=== PATIENT | male | born 1975 | race Two or more races ===

== ENCOUNTER 2017-06-09 22:04 | Inpatient (IN) | payer OTHER ==
[~2017-06-09] VITALS: Ht 180.3 cm; Wt 90.7 kg
[2017-06-09] MEDS ORDERED: ROCURONIUM BROMIDE 50 MG/5 ML IV ONE (22:06)
[2017-06-09] MEDS ORDERED: ETOMIDATE 2 MG/ML VIAL IV ONE ×2 (22:06→23:00)
[2017-06-09] MEDS ORDERED: ONDANSETRON HCL/PF 4 MG/2 ML VIAL ONE (22:18)
--- NOTE | 2017-06-09 22:20 | NUR ---
ZOFRAN 4MG IVP GIVEN BY DARIN PICKENS VIA 18G LT HAND
--- NOTE | 2017-06-09 22:25 | NUR ---
PT INTUBATED VIA ETT 24 AT [facility] PER DR KESSLER REQUEST. PT SHOWED SIGNS OF RESP DISTRESS. PT PLACED ON [facility] VENT PER DR KESSLER. LOAN APPROVER CUFF PRESSURE NOTED. ALARMS ARE SET AND AUDIBLE. NAMRATAU BAG BEDSIDE. WILL CONTINUE TO MONITOR. Addendum: 06/09/17 at 2314 by NAYELI ERWIN RT Amended: Links added.
[2017-06-09] MEDS ORDERED: IV NS 0.9% 1,000 ML BAG IV ONE (22:30)
[2017-06-09] MEDS ORDERED: ONDANSETRON HCL/PF 4 MG/2 ML VIAL IV ONE (22:30)
--- NOTE | 2017-06-09 22:35 | NUR ---
PT IS ACTIVELY SEIZING. DR. KESSLER IS AT THE BEDSIDE. PT PLACED ON NRB MASK AT 15L. RT CALLED.
[2017-06-09] MEDS ORDERED: PROPOFOL 100 ML IV ONE ×2 (22:38→23:00)
--- NOTE | 2017-06-09 22:38 | NUR ---
DR. KESSLER WENT TO THE WAITING ROOM TO SPEAK TO PT'S FAMILY MEMBERS. NO FAMILY IN WAITING ROOM.
--- NOTE | 2017-06-09 22:40 | NUR ---
DR. KESSLER WENT TO THE LOBBY TO SPEAK TO FAMILY MEMBERS. NO FAMILY IN WAITING ROOM.
--- NOTE | 2017-06-09 22:41 | NUR ---
PT PREPED FOR INTUBATION. RT X3 AT THE BEDSIDE.
--- NOTE | 2017-06-09 22:42 | NUR ---
PT INTUBATED BY DR. KESSLER. BAGGING IN PROGRESS. +COLOR CHANGE AND BREATH SOUNDS BILATERALLY. 8ETT AND 24 @ THE LIP. PT PLACED ON VENT WITH THE FOLLOWING SETTINGS AC18, TV 500, FIO2 % 40, PEEP 5.
--- NOTE | 2017-06-09 22:43 | NUR ---
RADIOLOGY CALLED FOR XRAY.
--- NOTE | 2017-06-09 22:49 | NUR ---
CXR IN PROGRESS AT THE BEDSIDE.
--- NOTE | 2017-06-09 22:50 | NUR ---
KRISTA BISHOP WENT TO THE LOBBY TO SEE IF FAMILY MEMBERS WERE THERE. NO FAMILY IN THE LOBBY.
[2017-06-09] MEDS ORDERED: LEVETIRACETAM (500MG) 500 MG/5 ML VIAL IV ONE (22:56)
[2017-06-09] MEDS ORDERED: ROCURONIUM BROMIDE 100 MG/10 ML VIAL IV ONE (23:00)
[2017-06-09] MEDS ORDERED: LEVETIRACETAM (500MG) 1,000 MG in IV NS 0.9% 100 ML IV ONE (23:00)
[2017-06-09 23:08] LABS: BASOPHILS # (AUTO) 0.1 /CMM (0.0-0.2); BASOPHILS % (AUTO) 0.5 % (0.0-2.0); EOSINOPHILS # (AUTO) 0.2 /CMM (0.0-0.7); EOSINOPHILS % (AUTO) 1.4 % (0.0-6.0); HEMATOCRIT 47 % (39-51); HEMOGLOBIN 15.1 g/dL (13.5-17.5); LYMPHOCYTES # (AUTO) 6.2 /CMM (0.8-4.8); LYMPHOCYTES % (AUTO) 52.7 % (20.0-44.0); MEAN CORPUSCULAR HEMOGLOBIN 29 PG (26.0-33.0); MEAN CORPUSCULAR HGB CONC 33 g/dl (31.0-36.0); MEAN CORPUSCULAR VOLUME 89 fL (80-96); MONOCYTES # (AUTO) 0.8 /CMM (0.1-1.30); MONOCYTES % (AUTO) 7.1 % (2.0-12.0); NEUTROPHILS # (AUTO) 4.5 /CMM (1.8-8.9); NEUTROPHILS % (AUTO) 38.3 % (43.0-81.0); PLATELET COUNT (AUTO) 200 /CMM (150-450); RDW COEFFICIENT OF VARIATION 13.6 (11.5-15.0); RED BLOOD CELL COUNT(AUTO) 5.24 MIL/uL (4.5-6.0); WHITE BLOOD COUNT (AUTO) 11.7 K/uL (4.3-11.0)
[2017-06-09 23:09] VITALS: BP 144/72
--- NOTE | 2017-06-09 23:11 | NUR ---
OG TUBE INSERTED, PER DR. KESSLER'S ORDER. PLACEMENT/2ND VERIFICATION CONFIRMED BY AUSCULTATION AND ASPIRATION.
[2017-06-09 23:17] LABS: CALCIUM, SERUM 9.4 mg/dL (8.5-10.1); CARBON DIOXIDE 19 mmol/L (21-32); CHLORIDE 102 mmol/L (98-107); CREATININE 1.1 mg/dL (0.6-1.3); GLUCOSE 186 mg/dL (74-106); POTASSIUM 3.3 mmol/L (3.5-5.1); SODIUM SERUM 140 mmol/L (136-145); UREA NITROGEN, BLOOD 12 mg/dL (7-18)
[2017-06-09 23:21] LABS: ALANINE AMINOTRANSFERASE 157 U/L (12-78); ALBUMIN 4.4 g/dL (3.4-5.0); ALCOHOL, BLOOD < 3 mg/dL (0-0); ALKALINE PHOSPHATASE 93 U/L (46-116); ASPARTATE AMINOTRANSFERASE 71 U/L (15-37); BILIRUBIN,DIRECT 0.1 mg/dL (0.0-0.2); BILIRUBIN,TOTAL 0.5 mg/dL (0.2-1.0); TOTAL PROTEIN, SERUM 8.3 g/dL (6.4-8.2)
[2017-06-09 23:22] LABS: INR 1.01 (0.87-1.13); PROTHROMBIN TIME 10.5 SECS (9.5-12.7)
--- NOTE | 2017-06-09 23:28 | NUR ---
PT APPEARS TO BE RESTING COMFORTABLY WITH NO S/S OF SEIZURE. WILL CONTINUE TO MONITOR THE PT.
--- NOTE | 2017-06-09 23:30 | NUR ---
WENT TO SEE IF FAMILY WERE WAITING. NO FAMILY IN THE WAITING ROOM. DR. KESSLER NOTIFIED.
[2017-06-09 23:37] LABS: ABG BASE EXCESS -5.6 mmol/L; ABG OXYGEN SATURATION 93.6 % (92.0-98.5); ABG PCO2 44.7 mmHg (35.0-45.0); ABG PH 7.288 (7.350-7.450); ABG PO2 78.8 mmHg (75.0-100.0); COHb 0.3 % (0.5-1.5); MetHb 0.6 % (0.0-1.5); O2Hb 92.8 % (94.0-97.0); SITE, ABG A-Line; VENT MODE, BG AC 18 500 40% +5
[2017-06-10] VITALS (39 sets, daily range): BP systolic 92–173; BP diastolic 24–99
[2017-06-10] MEDS ORDERED: POTASSIUM CL. PREMIX PERIPHER. 50 ML IV SCH
--- NOTE | 2017-06-10 00:05 | NUR ---
PT IS ON THE MONITOR AND CONTINUOUS PULSE OX. PT IS ON VENT AND PROPOFOL INFUSING AT 20MCG/MIN, 10.8ML/HR. WILL CONTINUE TO MONITOR THE PT.
--- NOTE | 2017-06-10 00:20 | NUR ---
DR BRITO PAGED PER DR KESSLER.
[2017-06-10] MEDS ORDERED: POTASSIUM CHLORIDE 20 MEQ POWDER PACKET ONE (00:34)
[2017-06-10] MEDS ORDERED: LORAZEPAM INJ 2 MG/ML VIAL ONE (00:36)
--- NOTE | 2017-06-10 00:39 | NUR ---
VO PER MD KESSLER ATIVAN 2 MG ADMINISTERED 18G RAC IVP.
[2017-06-10 00:40] LABS: ABG BASE EXCESS -4.5 mmol/L; ABG OXYGEN SATURATION 92.8 % (92.0-98.5); ABG PCO2 39.5 mmHg (35.0-45.0); ABG PH 7.341 (7.350-7.450); ABG PO2 72.9 mmHg (75.0-100.0); COHb 0.1 % (0.5-1.5); MetHb 0.6 % (0.0-1.5); O2Hb 92.2 % (94.0-97.0); SITE, ABG A-Line; VENT MODE, BG AC 18 500 40% +5
--- NOTE | 2017-06-10 00:54 | NUR ---
PROPOFOL INCREASED TO 50MCG/MIN, 27ML/HR
--- NOTE | 2017-06-10 00:56 | NUR ---
CALLING REPORT TO ICU NURSE.
--- NOTE | 2017-06-10 00:57 | NUR ---
NOT ABLE TO CALL REPORT PER DR. KESSLER
[2017-06-10] MEDS ORDERED: phenytoin SODIUM IV 250 MG/5 ML VIAL IV ONE (00:59)
[2017-06-10] MEDS ORDERED: POTASSIUM CHLORIDE 20 MEQ POWDER PACKET PO ONE (01:00)
[2017-06-10] MEDS ORDERED: LORAZEPAM INJ 2 MG/ML VIAL IV ONE (01:00)
[2017-06-10] MEDS ORDERED: NS 0.9% IV ONE (01:00)
[2017-06-10] MEDS ORDERED: PHENYTOIN SODIUM IV ONE (01:00)
[2017-06-10] MEDS ORDERED: POTASSIUM CHLORIDE 20 MEQ TAB.PRT.SR PO ONE (01:00)
--- NOTE | 2017-06-10 01:01 | NUR ---
DR BRITO REPAGED PER DR KESSLER.
--- NOTE | 2017-06-10 01:13 | NUR ---
DILANTIN STARTED VIA 18G RAC IV BY EDWIN RN/CHG. FILTER IN PLACE.
--- NOTE | 2017-06-10 01:22 | NUR ---
DR MÉNDEZ PAGED PER DR KESSLER.
[2017-06-10] MEDS ORDERED: IV NS 0.9% 1,000 ML BAG IV ONE (01:30)
--- NOTE | 2017-06-10 01:35 | NUR ---
PT IS ON THE MONITOR AND CONTINUOUS PULSE OX. VSS. PT IS ON A VENT AND PROPOFOL 50MCG/MIN 27ML/HR.
[2017-06-10] MEDS ORDERED: FENTANYL PF 100MCG/2ML AMPUL ONE (01:51)
[2017-06-10] MEDS ORDERED: FENTANYL PF 100MCG/2ML AMPUL IV PRN (02:00)
--- NOTE | 2017-06-10 02:06 | NUR ---
PT'S O2 SAT IS 91% ON VENT. DR. KESSLER ADJUSTED THE FIO2 TO 40%. PT IS SAT 92-93%. RT WAS CALLED AND IS AT THE BEDSIDE.
--- NOTE | 2017-06-10 02:06 | NUR ---
BILATERAL LUNG SOUNDS ARE CLEAR.
--- NOTE | 2017-06-10 02:07 | NUR ---
CXR IN PROGRESS AT THE BEDSIDE.
--- NOTE | 2017-06-10 02:08 | NUR ---
DR. EKSSLER IS ALSO AT THE BEDSIDE.
--- NOTE | 2017-06-10 02:10 | NUR ---
RT IS AT THE BEDSIDE. ET TUBE CHECKED AND FIO2 DECREASED TO 35%. PT'S O2 SAT IS 98%.
--- NOTE | 2017-06-10 02:20 | NUR ---
[facility] CALLED FOR HIGHER LEVEL OF CARE TRANSFER REQUEST. VOICEMAIL LEFT FOR NURSING PHYSICIAN COMPENSATION ANALYST.
--- NOTE | 2017-06-10 02:34 | NUR ---
[facility] CALLED FOR HIGHER LEVEL OF CARE TRANSFER REQUEST.
[2017-06-10] MEDS ORDERED: PROPOFOL 100 ML IV ONE ×2 (02:41→06:18)
--- NOTE | 2017-06-10 02:43 | NUR ---
PROPOFOL DECREASED TO 40MCG/MIN, 21.7ML/HR
--- NOTE | 2017-06-10 03:10 | NUR ---
PT APPEARS TO BE COMFORTABLE. VSS. WILL CONTINUE TO MONITOR THE PT.
--- NOTE | 2017-06-10 03:15 | NUR ---
PT'S FAMILY CALLED BY DARIN PINEDA/CHG TO LET THEM KNOW THAT PT IS BEING TRANSFERRED TO [facility]
[2017-06-10] MEDS ORDERED: LEVETIRACETAM (500MG) 500 MG in IV NS 0.9% 100 ML IV SCH (03:30)
[2017-06-10] MEDS ORDERED: LORAZEPAM INJ 2 MG/ML VIAL IVP PRN (03:30)
[2017-06-10] MEDS ORDERED: ACETAMINOPHEN 650 MG/SUPP.RECT RC PRN ×2 (03:30→09:00)
[2017-06-10] MEDS ORDERED: ONDANSETRON HCL/PF 4 MG/2 ML VIAL IVP PRN ×3 (03:30→09:00)
[2017-06-10] MEDS ORDERED: LEVETIRACETAM (500MG) 500 MG/5 ML VIAL IV ONE (03:30)
--- NOTE | 2017-06-10 03:39 | NUR ---
CALL FROM [facility]. PER LISA PT ACCEPTED TO [facility], ICU BED 4C120. DR ALFONSO. # FOR REPORT [phone]. [facility] [id number]
--- NOTE | 2017-06-10 03:39 | NUR ---
PROPOFOL DRIP INCREASED TO 50MCG/MIN, 27 ML/HR BY DARIN PINEDA/MERCEDES.
--- NOTE | 2017-06-10 03:39 | NUR ---
PT REC'D KEPPRA IVPB VIA 18G RAC BY DARIN PINEDA
--- NOTE | 2017-06-10 03:40 | NUR ---
[facility] CALLED FOR CCT TRANSPORT TO [facility]. ETA [id number]
--- NOTE | 2017-06-10 03:44 | NUR ---
TRANSFER PAPERWORK IN CHART.
--- NOTE | 2017-06-10 03:45 | NUR ---
[facility] CALLED FOR TRANSPORT. NO AVAILABLE CCT.
--- NOTE | 2017-06-10 03:48 | NUR ---
[facility] CALLED, NO CCT AVAILABLE.
--- NOTE | 2017-06-10 03:50 | NUR ---
[facility] CALLED. NO CCT AVAILABLE.
[2017-06-10] MEDS: POTASSIUM CL. PREMIX PERIPHER. 50 ML IV SCH ×2 (03:55→04:46)
--- NOTE | 2017-06-10 04:11 | NUR ---
DR. KESSLER IS AT THE BEDSIDE RE-EVALUATING THE PT.
--- NOTE | 2017-06-10 04:47 | NUR ---
PT APPEARS TO BE COMFORTABLE. NO S/S OF DISTRESS NOTED. VSS. PT IS ON VENT AND PROPOFOL. WILL CONTINUE TO MONITOR THE PT.
[2017-06-10] MEDS ORDERED: HYDROMORPHONE INJ 2 MG/ML DISP.SYRIN ONE (05:09)
--- NOTE | 2017-06-10 05:10 | NUR ---
VERBAL ORDER [address]ILAUDID IVP SLOWLY. [address]. KESSLER IS AT THE BEDSIDE.
[2017-06-10] MEDS ORDERED: HYDROMORPHONE 1 MG/1 ML DISP.SYRIN IV ONE (05:30)
--- NOTE | 2017-06-10 05:44 | NUR ---
ARIAS CATH EMPTIED. APPROX 600 ML YELLOW CLOUDY URINE OUTPUT NOTED.
--- NOTE | 2017-06-10 06:07 | NUR ---
DISK WITH IMAGES - IN THE CHART. 2ND ORDER FOR DISK CANCELLED.
[2017-06-10] MEDS ORDERED: IV PREMIX D5 NS + KCL 1,000 ML IV ONE (06:45)
[2017-06-10] MEDS ORDERED: IV PREMIX D5 1/2NS + KCL 1,000 ML IV ONE (06:48)
--- NOTE | 2017-06-10 06:54 | NUR ---
PILLOW PLACED UNDER RT SIDE AND FEET OFFLOADED WITH A PILLOW.
--- NOTE | 2017-06-10 07:29 | NUR ---
PT ON VENT AND PROPOFOL INFUSING. PT IS ON MONITOR AND CONTINUOUS PULSE OX. PT'S VSS.
--- NOTE | 2017-06-10 07:30 | NUR ---
REPORT GIVEN TO DARIN REEVES/MERCEDES FOR BRANDON.
--- NOTE | 2017-06-10 07:30 | NUR ---
RECIEVED PT ON BED 03, INTUBATED, ON VENT WITH THE FOLLOWING SETTINGS: AC18, TV 500, FIO2 % 35, PEEP 5. WITH AN ON GOING PROPOFOL AT 50 MCG/KG/MIN. VSS. WILL CONTINUE TO MONITOR.
--- NOTE | 2017-06-10 07:39 | NUR ---
ARJUN SNYDER FOR ADMISSION
--- NOTE | 2017-06-10 07:39 | NUR ---
CALLED [facility] NURSING MEASURING MACHINE TENDER FOR ICU BED, NO BED AVAILABLE. STATES PATIENTS NEED TO BE MOVED TO ACCOMMODATE ADMISSION
--- NOTE | 2017-06-10 07:55 | NUR ---
DR. BRITO AT BEDSIDE.
[2017-06-10] MEDS ORDERED: OMEP20TA68 PO (08:00)
[2017-06-10] MEDS ORDERED: CHOL200026 PO (08:00)
[2017-06-10] MEDS ORDERED: LACT1CAP57 PO (08:00)
[2017-06-10] MEDS ORDERED: UBID100C13 PO (08:00)
[2017-06-10] MEDS ORDERED: LISI2.5T2 PO (08:00)
[2017-06-10] MEDS ORDERED: MULT1TAB73 PO (08:00)
[2017-06-10] MEDS ORDERED: MIRABEGRON PO (08:00)
[2017-06-10] MEDS ORDERED: CRAN500C3 PO (08:00)
[2017-06-10] MEDS ORDERED: OMEG1CAP PO (08:00)
[2017-06-10] MEDS ORDERED: FLUT9.9S BNOSTRILS (08:00)
[2017-06-10] MEDS ORDERED: CALC-864 PO (08:00)
[2017-06-10] MEDS ORDERED: CALC3.8S NS (08:00)
[2017-06-10] MEDS ORDERED: OXYB5TAB11 PO (08:00)
--- NOTE | 2017-06-10 08:53 | NUR ---
CALLED TO GIVE REPORT TO MATTHEW WEBSTER FOR CONTINUITY OF CARE IN ICU, NURSE IS UNAVAILABLE TO TAKE REPORT, REQUESTING CALL BACK IN 10 MIN Addendum: 06/10/17 at 0857 by DAYNA RN IS STILL TRANSFERING PT FROM ICU
[2017-06-10] MEDS ORDERED: MAG HYDROX/AL HYDROX/SIMETH 30 ML UDC PO PRN (09:00)
[2017-06-10] MEDS ORDERED: HYDROCODONE/APAP 5/325MG 1 EACH TABLET PO PRN (09:00)
[2017-06-10] MEDS ORDERED: PANTOPRAZOLE 40 MG VIAL IV SCH (09:00)
[2017-06-10] MEDS ORDERED: ZOLPIDEM TARTRATE 5 MG TABLET PO PRN (09:00)
[2017-06-10] MEDS ORDERED: LORAZEPAM INJ 2 MG/ML VIAL IV PRN (09:00)
[2017-06-10] MEDS ORDERED: Z GUARD REMEDY 2 OZ OINT TP PRN (09:00)
[2017-06-10] MEDS ORDERED: MAGNESIUM HYDROXIDE 30 ML UDC PO PRN (09:00)
--- NOTE | 2017-06-10 09:03 | NUR ---
PT TRANSFERRED TO ICU VIA ACLS PROTOCOL
--- NOTE | 2017-06-10 09:03 | NUR ---
BEDSIDE REPORT TO BE GIVEN TO MATTHEW RN FOR CONTINUITY OF CARE IN ICU. NURSE IS TOO BUSY TO TAKE REPORT OVER PHONE DUE TO PATIENT TRANSFER
--- NOTE | 2017-06-10 09:17 | NUR ---
INITIAL MOTOR VEHICLES SUPERVISOR NOTE RCVD PT FROM ER INTUBATED ETT 7.5 23 AT LIP TOLERATING ORDERED VENT SETTINGS WELL. PT SEDATED ON DIPRIVAN 50 MCG//KG/MIN. PT RESPONDS TO PAINFUL STIMULI. BOTH EYES APPEAR CLOUDY AND PUPILS NON-REACTIVE. SR ON TELE. RIGHT AC #18 C/D/I/PATENT. LEFT HAND #18, HAND APPEARS SWOLLEN, PT REACTS TO TOUCH IV SITE APPEARS TENDER TO TOUCH. ARIAS TO GRAVITY DRAINING YELLOW URINE WITH SEDIMENT. WILL CONTINUE TO MONITOR PT FOR SAFETY AND COMFORT. CALL LIGHT WITHIN REACH. BED IN LOW AND LOCKED POSITION.
--- NOTE | 2017-06-10 09:30 | NUR ---
PT APPEARS BLIND WITH [place] WHITE COVERING OVER BILATERAL IRISES AND PUPILS-CONFIRMED BY DR MCCALLUM IN ER
[2017-06-10] MEDS: LEVETIRACETAM (500MG) 1,000 MG in IV NS 0.9% 100 ML IV SCH ×2 (09:33→21:01)
[2017-06-10] MEDS: PANTOPRAZOLE 40 MG VIAL IV SCH (09:38)
[2017-06-10] MEDS: ENOXAPARIN SODIUM 40 MG/0.4 ML DISP.SYRIN SQ SCH (09:39)
[2017-06-10 10:02] LABS: ABG BASE EXCESS -1.3 mmol/L; ABG PCO2 42.2 mmHg (35.0-45.0); ABG PH 7.372 (7.350-7.450); AaDO2 115.5 mmHg; COHb 0.3 % (0.5-1.5); MetHb 0.6 % (0.0-1.5); O2Hb 95.1 % (94.0-97.0); PEEP,BG 5 cm H2O; SITE, ABG Left Radial; VT, ABG 500 mL
[2017-06-10] MEDS: IV D5/0.45 NACL 1,000 ML IV PRN (10:53)
--- NOTE | 2017-06-10 13:33 | NUR ---
ENTERPRISE INFRASTRUCTURE ARCHITECT NOTE PT REMAINS STABLE, TOLERATING ORDERED VENT SETTINGS. WILL CONTINUE TO MONITOR.
[2017-06-10] MEDS: PROPOFOL 100 ML IV PRN ×4 (13:35→20:45)
[2017-06-10] MEDS: ACETAMINOPHEN 325 MG TABLET PO PRN (16:33)
--- NOTE | 2017-06-10 16:41 | NUR ---
CHANGE DIRECTOR NOTE PT TEMP 99.9 PT GIVEN TYLENOL WILL CONTINUE TO MONITOR.
--- NOTE | 2017-06-10 17:09 | NUR ---
HEBREW PROFESSOR NOTE PT'S FATHER AT BEDSIDE UPDATED ON PT'S CONDITION. FATHER CALLED PT'S NEUROLOGIST DR. PARRA ([phone]). WOULD LIKE TO SPEAK WITH DR. BRITO WHEN AVAILABLE. PER PT'S FATHER REPORT ONLY PAST MEDICAL HX IS SEIZURE DISORDER AND BLINDNESS.
--- NOTE | 2017-06-10 17:35 | NUR ---
TOURING PRODUCTION MANAGER NOTE PT'S TEMP 99.3 WILL CONTINUE TO MONITOR.
--- NOTE | 2017-06-10 18:41 | NUR ---
TAIL EDGER NOTE PT REMAINS STABLE, SR ON TELE, SEDATED ON DIPRIVAN, TOLERATING ORDERED VENT SETTINGS. ARIAS TO GRAVITY DRAINING CLOUDY, YELLOW URINE. IV SITES REMAIN C/D/I/PATENT. NO S/O INFILTRATION/PHLEBITIS OBSERVED. PT'S CARE WILL BE ENDORSED TO FREIGHT HANDLER RN FOR CONTINUITY OF CARE. BED IN LOW AND LOCKED POSITION. CALL LIGHT WITHIN REACH.
--- NOTE | 2017-06-10 20:00 | NUR ---
Received patient sedated on vent on ac mode.Vent settings well tolerated.Patient bilaterally blind. VS stable.SR per monitor no ectopies noted.OGT clamped and placement verified.FC to gravity draining clear yellow urine.Diprivan infusing at 50 mcg/kg/min to RAC and main IVF infusing to RFA.Both sites intact. No seizure activity noted at this time.Seizure precaution ,aspiration precaution and fall precaution all implemented with side rails padded.Turned and repositioned.
[2017-06-11] VITALS (48 sets, daily range): BP systolic 96–134; BP diastolic 51–75
--- NOTE | 2017-06-11 | NUR ---
Patient resting.VS stable.SR.No pain or seizure activity noted.Turned and repositioned.
[2017-06-11] MEDS: IV D5/0.45 NACL 1,000 ML IV PRN ×2 (00:28→18:47)
[2017-06-11] MEDS: PROPOFOL 100 ML IV PRN ×7 (00:29→23:07)
--- NOTE | 2017-06-11 05:00 | NUR ---
Patient resting.Bathed and complete linens changed.Secretions suctioned and oral care done. No distress noted.AM labs drawn.Adequate urine output.No BM noted.Turned and repositioned.
[2017-06-11 05:16] LABS: BASOPHILS % (AUTO) 0.2 % (0.0-2.0); EOSINOPHILS % (AUTO) 0.4 % (0.0-6.0); HEMATOCRIT 40 % (39-51); HEMOGLOBIN 13.6 g/dL (13.5-17.5); LYMPHOCYTES # (AUTO) 2.1 /CMM (0.8-4.8); MEAN CORPUSCULAR HEMOGLOBIN 30 PG (26.0-33.0); MEAN CORPUSCULAR HGB CONC 34 g/dl (31.0-36.0); MEAN CORPUSCULAR VOLUME 88 fL (80-96); MONOCYTES # (AUTO) 0.8 /CMM (0.1-1.30); MONOCYTES % (AUTO) 7.3 % (2.0-12.0); NEUTROPHILS # (AUTO) 8.1 /CMM (1.8-8.9); NEUTROPHILS % (AUTO) 73.1 % (43.0-81.0); PLATELET COUNT (AUTO) 113 /CMM (150-450); RDW COEFFICIENT OF VARIATION 13.7 (11.5-15.0); RED BLOOD CELL COUNT(AUTO) 4.56 MIL/uL (4.5-6.0); WHITE BLOOD COUNT (AUTO) 11.1 K/uL (4.3-11.0)
[2017-06-11 05:37] LABS: CALCIUM, SERUM 8.2 mg/dL (8.5-10.1); CREATININE 0.7 mg/dL (0.6-1.3); PHOSPHORUS 2.9 mg/dL (2.5-4.9); POTASSIUM 3.1 mmol/L (3.5-5.1)
--- NOTE | 2017-06-11 07:16 | NUR ---
Patient VS remains stable.No seizure activity noted or pain.Still with Diprivan at 50 mcg and IVF infusing well.All needs met.Report given to incoming AM shift RN for continuity of care.
--- NOTE | 2017-06-11 07:31 | NUR ---
INITIAL SLITTER SERVICE AND SETTER NOTE RCVD PT INTUBATED 8.0 24 AT LIP, SEDATED ON DIPRIVAN, TOLERATING ORDERED VENT SETTINGS WELL. NO S/O DISTRESS/PAIN OBSERVED. SR ON TELE. OG TUBE PLACEMENT VERIFIED BY AUSCULTATION/ASPIRATION. ARIAS TO GRAVITY DRAINING CLOUDY, YELLOW URINE. IV SITES C/D/I/PATENT. NO S/O INFILTRATION/PHLEBITIS OBSERVED. IVF INFUSING. WILL CONTINUE TO MONITOR PT. BED IN LOW AND LOCKED POSITION. CALL LIGHT WITHIN REACH.
--- NOTE | 2017-06-11 08:04 | NUR ---
RT NOTE PT IN STABLE CONDITION. PT VENTILATED VIA 8.0 ETT 24 CM AT LIP. SETTINGS PRESCRIBED AC 18 500 35% +5. ALARMS SET PRE PROTOCOL AND AUDIBLE. AMBU BAG AT BED SIDE. VENT PLUGGED IN TO RED OUTLET. BILATERAL CHEST RISE NOTED. NO DISTRESS NOTED WILL CONTINUE TO MONITOR. Addendum: 06/11/17 at 0806 by ELAINE LOCKHART RT Amended: Links added.
[2017-06-11] MEDS: PANTOPRAZOLE 40 MG VIAL IV SCH (08:20)
[2017-06-11] MEDS: ENOXAPARIN SODIUM 40 MG/0.4 ML DISP.SYRIN SQ SCH (08:21)
[2017-06-11] MEDS: LEVETIRACETAM (500MG) 1,000 MG in IV NS 0.9% 100 ML IV SCH ×2 (08:21→20:46)
[2017-06-11] MEDS: ACETAMINOPHEN 325 MG TABLET PO PRN ×3 (09:29→23:07)
--- NOTE | 2017-06-11 09:30 | NUR ---
PHOTOGRAPHER NEWS NOTE SEDATION VACATION IMPLEMENTED. PER PT'S FATHER PT IS CHILEAN SPEAKER. OFF SEDATION PT ATTEMPTING TO GET OUT OF BED, UNABLE TO FOLLOW SIMPLE COMMANDS IN [place] OR [place]. SUKH RN AND RT AT BEDSIDE ORIENTING PT IN [place]. DR. RUDD CAME TO ASSESS PT AND RECOMMENDED TO SEDATE PT AGAIN. WILL ATTEMPT ASSESSING PT'S NEURO STATUS AGAIN IN AM TOMORROW. WILL CONTINUE TO MONITOR PT.
--- NOTE | 2017-06-11 10:11 | NUR ---
WELL LOGGING OPERATOR MUD ANALYSIS NOTE DR. SNYDER IN UNIT UPDATED ON PT'S CONDITION INFORMED OF PT'S TEMP 100.4 THIS AM AND HYPOKALEMIA. POTASSIUM REPLACEMENT ORDERED. WILL CONTINUE TO MONITOR PT.
[2017-06-11] MEDS: POTASSIUM CL. PREMIX PERIPHER. 50 ML IV SCH ×4 (11:58→16:44)
--- NOTE | 2017-06-11 12:17 | NUR ---
STEAM SHOVEL OPERATOR NOTE PT'S TEMP REMAINS ELEVATED, COOLING MEASURES STARTED. WILL CONTINUE TO MONITOR.
--- NOTE | 2017-06-11 16:27 | NUR ---
RT NOTE SPUTUM SAMPLE COLLECTED ORDERED. PLACED IN PROPER CONTAINER. RN NOTED. NO DISTRESS NOTED. PT IN STABLE CONDITION. Addendum: 06/11/17 at 1629 by ELAINE LOCKHART RT Amended: Links added.
--- NOTE | 2017-06-11 16:56 | NUR ---
PRACTICAL NURSE NOTE DR. SNYDER CONTACTED REGARDING PT'S ELEVATED TEMP DESPITE TYLENOL, COOLING MEASURES AND TEPID TEMP BED BATH. ORAL TEMP 100.8, RECTAL TEMP 102. COOLING BLANKET ORDERED, PT NGO CULTURED. WILL CONTINUE TO MONITOR.
--- NOTE | 2017-06-11 17:17 | NUR ---
DISTRICT MANAGER POSTAL SERVICE NOTE CALLED RADIOLOGY SERVICE [phone] INQUIRING ON PT'S CHEST X-RAY READING NOT SHOWING OG-TUBE. SPOKE WITH RADIOLOGIST WHO STATED THAT HE'LL CONTACT RADIOLOGIST WHO READ REPORT TO AMEND OG-TUBE FINDINGS. Addendum: 06/11/17 at 1852 by MATTHEW CASILLAS RN SPOKE WITH PT'S DAD HE WAS UPDATED ON PT'S CONDITION, DARIN LUZ TRANSLATED TO MAKE SURE COMMUNICATION IS CLEAR. PT'S DAD PUT PT'S NEUROLOGIST, DR. PARRA ON THE PHONE HE WAS ALSO UPDATED ON PT'S CONDITION.
--- NOTE | 2017-06-11 18:40 | NUR ---
WEAVER DOBBY LOOM NOTE PT REMAINS INTUBATED, SEDATED, TOLERATING ORDERED VENT SETTINGS WELL. SR ON TELE. OG TUBE PLACEMENT VERIFIED BY AUSCULTATION/ASPIRATION. NO RESIDUAL OBSERVED. ARIAS TO GRAVITY DRAINING CLOUDY, YELLOW URINE. IV SITES C/D/I/PATENT. NO S/O INFILTRATION/PHLEBITIS OBSERVED UPON FLUSHING. PT'S CARE WILL BE ENDORSED TO PRINTING PRESS OPERATOR APPRENTICE RN FOR CONTINUITY OF CARE. BED IN LOW AND LOCKED POSITION.
--- NOTE | 2017-06-11 20:00 | NUR ---
RN:ICU: PT RECEIVED IN BED ON VENT VIA ETT, PT TOLERATING CURRENT VENT SETTINGS. PT SR ON TELE, STILL WITH LOW GRADE FEVERS. COOLING MEASURES IMPLEMENTED. PT REQUIRES BILATERAL SOFT WRIST RESTRAINTS FOR PATIENT SAFETY. PT NGO CULTURED DURING DAYSHIFT DUE TO TMAX 102. IV SITES REMAIN INTACT. PT ON DIPRIVAN 40MCG/KG/MIN. PLANS TO WEAN PT IN AM. NO ACUTE DISTRESS. SEIZURE PRECAUTIONS IMPLEMENTED.
[2017-06-11] MEDS ORDERED: PIPERACILLIN /TAZOBACTAM 3.375 G VIAL IV ONE (23:02)
--- NOTE | 2017-06-11 23:20 | NUR ---
RN:ICU: PT NOTED TO HAVE FEVER 101.5 AND HAS BEEN RUNNING FEVERS FOR THE PAST 24 HOURS, AND XRAY SUGGESTING POSSIBLE PNA. D/W THREAD LASTER, NEW ORDERS FOR ZOSYN Q8H. COOLING MEASURES IMPLEMENTED. WILL CONTINUE TO MONITOR CLOSELY. PT ALREADY PANCULTURED TODAY.
[2017-06-12] VITALS (31 sets, daily range): BP systolic 90–166; BP diastolic 50–99
[2017-06-12] MEDS ORDERED: PIPERACILLIN /TAZOBACTAM 3.375 G in IV D5W 50 ML IV SCH ×2
[2017-06-12] MEDS: PROPOFOL 100 ML IV PRN ×3 (01:44→07:52)
--- NOTE | 2017-06-12 04:27 | NUR ---
RN:ICU: PT CONTINUES TO HAVE PERSISTENT FEVERS. PT ALSO NOTED TO HAVE FOUL SMELLING YELLOW/GREEN SPUTUM FROM ETT. SPUTUM SAMPLE ALREADY COLLECTED. PT PREMEDICATED FOR PAIN PRIOR TO ADL'S. PT BEGINS TO COUGH VIOLENTLY DURING ADL'S. SUCTIONED PT SEVERAL TIMES TO CLEAR AIRWAY FROM THICK SECRETIONS. NO SEIZURE ACTIVITY NOTED AT THIS TIME. RIGHT AC IV REMAINS INTACT, BUT IV PUMP ALARMS PT BENDS HIS RIGHT AC. PT ARM REPOSITIONED. WILL ENDORSE TO ONCOMING SHIFT POSSIBLE NEED FOR MIDLINE IN AM. WILL CONTINUE TO MONITOR CLOSELY. COLD BATH GIVING, ALONG WITH OTHER COOLING MEASURES.
[2017-06-12 04:45] LABS: BASOPHILS % (AUTO) 0.2 % (0.0-2.0); EOSINOPHILS # (AUTO) 0.1 /CMM (0.0-0.7); EOSINOPHILS % (AUTO) 0.9 % (0.0-6.0); HEMATOCRIT 41 % (39-51); LYMPHOCYTES # (AUTO) 1.6 /CMM (0.8-4.8); LYMPHOCYTES % (AUTO) 13.9 % (20.0-44.0); MEAN CORPUSCULAR HEMOGLOBIN 30 PG (26.0-33.0); MEAN CORPUSCULAR HGB CONC 34 g/dl (31.0-36.0); MEAN CORPUSCULAR VOLUME 87 fL (80-96); MONOCYTES # (AUTO) 0.9 /CMM (0.1-1.30); MONOCYTES % (AUTO) 7.7 % (2.0-12.0); NEUTROPHILS # (AUTO) 8.7 /CMM (1.8-8.9); NEUTROPHILS % (AUTO) 77.3 % (43.0-81.0); PLATELET COUNT (AUTO) 107 /CMM (150-450); RDW COEFFICIENT OF VARIATION 13.3 (11.5-15.0); RED BLOOD CELL COUNT(AUTO) 4.74 MIL/uL (4.5-6.0); WHITE BLOOD COUNT (AUTO) 11.2 K/uL (4.3-11.0)
[2017-06-12 05:01] LABS: ALBUMIN 2.9 g/dL (3.4-5.0); BILIRUBIN,TOTAL 0.7 mg/dL (0.2-1.0); CALCIUM, SERUM 8.6 mg/dL (8.5-10.1); CREATININE 0.7 mg/dL (0.6-1.3); PHOSPHORUS 2.7 mg/dL (2.5-4.9); POTASSIUM 3.3 mmol/L (3.5-5.1); TOTAL PROTEIN, SERUM 6.6 g/dL (6.4-8.2)
[2017-06-12] MEDS: ACETAMINOPHEN 325 MG TABLET PO PRN (05:10)
--- NOTE | 2017-06-12 07:45 | NUR ---
ICU/RN: Pt received, intubated, no distress noted. IVF infusing well. Cooling measures in place. Will cont to monitor
[2017-06-12] MEDS: PIPERACILLIN /TAZOBACTAM 4.5 G in IV D5W 50 ML IV SCH ×3 (07:51→17:31)
[2017-06-12] MEDS: PANTOPRAZOLE 40 MG VIAL IV SCH (08:07)
[2017-06-12] MEDS: IV D5/0.45 NACL 1,000 ML IV PRN (08:07)
[2017-06-12] MEDS: LEVETIRACETAM (500MG) 1,000 MG in IV NS 0.9% 100 ML IV SCH ×2 (09:33→20:19)
[2017-06-12] MEDS: ENOXAPARIN SODIUM 40 MG/0.4 ML DISP.SYRIN SQ SCH (09:35)
--- NOTE | 2017-06-12 09:45 | NUR ---
ICU/RN: Dr Boykin rounds; updated on pt status. Informed of mental status off sedation - able to follow commands, move all extremities, however starts biting on tube and requires sedation. No new orders. Addendum: 06/12/17 at 1155 by YOSEF RG RN Per Dr Boykin "I already spoke with the pt's primary neurologist."
[2017-06-12] MEDS ORDERED: IV NS 0.9% 500 ML IV ONE ×2 (10:00→10:30)
--- NOTE | 2017-06-12 10:05 | NUR ---
ICU/RN: Dr Grant sorto. updated on pt status. Aware of elevated temp throughout the night, per MD cont current treatment, orders IV fluid challenge. Will cont to monitor pt status.
--- NOTE | 2017-06-12 10:35 | NUR ---
ICU/RN: Dr. Racheal sorto, updated on pt status. Informed of temperature overnight, highest temp 101F , thick foul, greenish secretions suctioned and SBP in mid to low 90's.
[2017-06-12] MEDS ORDERED: POTASSIUM CL. PREMIX PERIPHER. 50 ML IV SCH (10:48)
--- NOTE | 2017-06-12 10:48 | NUR ---
ICU/RN: Dr Springer at bedside. Pt off sedation since 1000, breathing even and unlabored, no distress noted. Following commands, father at bedside comforting pt. Asked MD if ABG required, per MD "No he doesn't need one." [place] RT aware. Father and pt informed that Dr Springer spoke with pt's PCP and has been updated.
[2017-06-12] MEDS ORDERED: DC PROPOFOL WHEN EXTUBATED XX PRN (10:49)
--- NOTE | 2017-06-12 11:00 | NUR ---
ICU/RN: Pt s/p extubation. Dr Springer at bedside. Breathing even and unlabored. No distress noted. Thick green secretions suctioned out prior to extubation. aware.
[2017-06-12] MEDS ORDERED: FEE PK DOSING 1 MIN EA MC ONE (11:02)
[2017-06-12] MEDS: VANCOMYCIN 1.25 GM in IV D5W 500 ML IV SCH ×2 (11:10→20:56)
[2017-06-12] MEDS: Potassium Chloride 10 MEQ in IV D5W 50 ML IV SCH ×2 (11:21→12:44)
[2017-06-12] MEDS ORDERED: ACETAMINOPHEN LIQUID 160 MG/5 ML BOTTLE PO PRN (12:00)
--- NOTE | 2017-06-12 15:00 | NUR ---
ICU/RN: Complete cool bed bath, oral and wound care rendered. Tolerated well. New IV HL inserted on L AC#20. FC draining cloudy green urine to gravity.
[2017-06-12] MEDS: ACETAMINOPHEN 650 MG/20.3 ML UDC PO PRN ×2 (15:16→23:12)
--- NOTE | 2017-06-12 19:00 | NUR ---
PRESS CLIPPER Received patient awake,alert,follows simple commands,Patient BLIND ,responds to name calling, seems coherent ,does not answer other questions of orientation.,does not talk much ,but able to clearly say "yes".With O2 via NC ,not in distress,encouraged deep breathing and coughing exercise.Comfort care done,needs attended,father present at bedside.
--- NOTE | 2017-06-12 19:20 | NUR ---
ICU/RN: Pt comfortable on 3L/min O2 via NC. Follows commands, assists with turning and repositioning. Poor appetite. IVF infusing well. Care endorsed to PM RN for BRANDON.
[2017-06-13] VITALS (26 sets, daily range): BP systolic 110–163; BP diastolic 53–96
[2017-06-13] MEDS: PIPERACILLIN /TAZOBACTAM 4.5 G in IV D5W 50 ML IV SCH ×4 (00:02→17:19)
--- NOTE | 2017-06-13 00:15 | NUR ---
MANAGEMENT DEVELOPMENT SPECIALIST Still with fever T=100.5 post giving tylenoll.Continued cooling measures,maimntained on hypothermic blanket ,comfort measures done.Remains stable,asleep but easily awakens,following commands. Addendum: 06/13/17 at 0353 by RAFFI DURAN RN Correction for above notes.Tylenol given for mild generalized pain (3/10) with good effect.0/10 .
[2017-06-13] MEDS: VANCOMYCIN 1.25 GM in IV D5W 500 ML IV SCH ×3 (04:06→20:04)
--- NOTE | 2017-06-13 05:00 | NUR ---
ERP IMPLEMENTATION CONSULTANT AM bath rendered.Peripheral IV inserted via right forearm.Right antecubital IV leaking ,discontinued.
[2017-06-13 05:08] LABS: CALCIUM, SERUM 8.5 mg/dL (8.5-10.1); CREATININE 0.6 mg/dL (0.6-1.3)
--- NOTE | 2017-06-13 05:30 | NUR ---
EDGE TRIMMING MACHINE OPERATOR: ARJUN OCASIO ASPHALT TAR AND GRAVEL ROOFER FOR POTASSIUM RESULT=3.0 AWAITING TO CALL BACK. NO SIGNIFICANT BRANDON AT THIS TIME. WILL CONTINUE TO MONITOR.
--- NOTE | 2017-06-13 06:35 | NUR ---
OB GYN PHYSICIAN ASSISTANT Potassium =3.[address] Doll called back oredered K replacement of 40 meq.IV.Patient remains stable,neuro status unchanged,awake,alert, O2 sat.98-99% on NC 3l/min,No SOB noted.Still with fever T=99.9 ,maintained on Hypothermic blanket.Continue present care,if respiratory status remains stable may probably be downgraded.Continue seizure precaution.For Vanco trough level today @ 11 am.
[2017-06-13 07:34] LABS: BASOPHILS % (AUTO) 0.2 % (0.0-2.0); EOSINOPHILS # (AUTO) 0.2 /CMM (0.0-0.7); EOSINOPHILS % (AUTO) 1.5 % (0.0-6.0); HEMATOCRIT 44 % (39-51); HEMOGLOBIN 14.4 g/dL (13.5-17.5); LYMPHOCYTES # (AUTO) 2.2 /CMM (0.8-4.8); LYMPHOCYTES % (AUTO) 17.3 % (20.0-44.0); MEAN CORPUSCULAR HEMOGLOBIN 29 PG (26.0-33.0); MEAN CORPUSCULAR HGB CONC 33 g/dl (31.0-36.0); MEAN CORPUSCULAR VOLUME 88 fL (80-96); MONOCYTES # (AUTO) 0.9 /CMM (0.1-1.30); MONOCYTES % (AUTO) 7.4 % (2.0-12.0); NEUTROPHILS # (AUTO) 9.3 /CMM (1.8-8.9); NEUTROPHILS % (AUTO) 73.6 % (43.0-81.0); PLATELET COUNT (AUTO) 142 /CMM (150-450); RDW COEFFICIENT OF VARIATION 13.1 (11.5-15.0); RED BLOOD CELL COUNT(AUTO) 4.94 MIL/uL (4.5-6.0); WHITE BLOOD COUNT (AUTO) 12.7 K/uL (4.3-11.0)
[2017-06-13] MEDS: POTASSIUM CL. PREMIX PERIPHER. 50 ML IV SCH ×4 (08:27→11:33)
[2017-06-13] MEDS: PANTOPRAZOLE 40 MG VIAL IV SCH (08:29)
[2017-06-13] MEDS: ENOXAPARIN SODIUM 40 MG/0.4 ML DISP.SYRIN SQ SCH (08:29)
[2017-06-13] MEDS: IV D5/0.45 NACL 1,000 ML IV PRN (09:22)
[2017-06-13] MEDS: LEVETIRACETAM (500MG) 1,000 MG in IV NS 0.9% 100 ML IV SCH ×2 (09:23→21:10)
--- NOTE | 2017-06-13 10:25 | NUR ---
ICU/RN: Dr Leahy at the bedside, updated on pt status. Informed of mental status, labs, UO. Case discussed with family.
[2017-06-13] MEDS ORDERED: IV D5/0.45 NACL 1,000 ML IV PRN (14:00)
--- NOTE | 2017-06-13 15:15 | NUR ---
ICU/RN: Complete bed bath, wound care rendered. No skin issues identified. Pt turns and repositions independently with standby assist. Encouraged to turn and reposition q2h to prevent skin breakdown. Father at bedside.
[2017-06-13] MEDS: LACTOBACILLUS RHAMNOSUS GG 1 EACH CAP.SPRINK PO SCH (17:19)
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
--- NOTE | 2017-06-13 23:00 | NUR ---
SIENE MAKER REPORT GIVEN TO GALLO WBESTER FOR BRANDON. PT TRANSFERRED TO [facility] IN STABLE CONDITION VIA ACLS PROTOCOL. BROTHER AT BEDSIDE.
--- NOTE | 2017-06-13 23:00 | NUR ---
yesy rn notes received pts and report from terrie icu nurse ,pts on yesy status, on 3 liters of o2 via nc.on tele sr -st rate of 107 on the monitor . no sob no distress noted.no c/o of pain at this `time . with iv HL lac G#22 AND RFA G#20 INTACT AND PATENT , IVF OF D5 1/2 NS AT 75CC/HR TOLERATED WELL , F/C INTACT AND PATENT DRAINING WITH YELLOWISH URINE OUTPUT. ALL DUE MEDS GIVEN ORDERED ALL NEEDS ATTENDED TOO CALL LIGHT WITHIN REACH , KEPT PTS CLEAN DRY AND COMFORTABLE.NO EPISODE OF SEIZURE ACTIVITY NOTED.
[2017-06-14] VITALS: BP 140/91
[2017-06-14] MEDS: PIPERACILLIN /TAZOBACTAM 4.5 G in IV D5W 50 ML IV SCH ×2 (01:24→05:34)
[2017-06-14 04:00] VITALS: BP 154/85
[2017-06-14] MEDS: VANCOMYCIN 1.25 GM in IV D5W 500 ML IV SCH (04:52)
[2017-06-14 05:00] VITALS: BP_SYST 140; BP_SYST 154; BP_DIAS 85; BP_DIAS 91
--- NOTE | 2017-06-14 07:29 | NUR ---
DIAMANTE RN NOTES PTS ON BED AWAKE AND RESPONSIVE . V/S STABLE AFEBRILE , NO SIGNIFICANCE CHANGE NOTED.WILL ENDORSE TO RN DAY SHIFT FOR CONTINUITY OF CARE.
--- NOTE | 2017-06-14 07:30 | NUR ---
RN NOTES RECEIVED PATIENT IN BED ALERT, AWAKE, ORIENTED X3 WITH BREATHING NORMAL, EVEN AND UNLABORED. NO SOB NOTED. NO ACUTE DISTRESS NOTED. TELE MONITOR REVEALS SR, HR=85. IV IS PATENT AND INTACT, RUNNING IVF PER ORDER, F/C IS PATENT AND INTACT, DRAINING WITH GRAVITY. KEPT CLEAN, DRY AND COMFORTABLE. ALL NEEDS ATTENDED. SAFETY MEASURE OBSERVED. CALL LIGHT WITH IN REACH. WILL CONT TO MONITOR.
[2017-06-14 07:58] LABS: CALCIUM, SERUM 9.7 mg/dL (8.5-10.1); CREATININE 0.7 mg/dL (0.6-1.3); POTASSIUM 3.1 mmol/L (3.5-5.1)
[2017-06-14 08:00] VITALS: BP 151/84
[2017-06-14] MEDS: PANTOPRAZOLE 40 MG VIAL IV SCH (08:51)
[2017-06-14] MEDS: LACTOBACILLUS RHAMNOSUS GG 1 EACH CAP.SPRINK PO SCH (08:51)
[2017-06-14] MEDS: ENOXAPARIN SODIUM 40 MG/0.4 ML DISP.SYRIN SQ SCH (08:52)
[2017-06-14] MEDS ORDERED: LEVETIRACETAM SOL (5 ML) 100 MG/ML UDC PO SCH (09:00)
[2017-06-14] MEDS ORDERED: LEVE1000 PO (09:03)
[2017-06-14] MEDS ORDERED: LEVO500T15 PO (09:03)
[2017-06-14] MEDS: POTASSIUM CHLORIDE 20 MEQ POWDER PACKET PO SCH ×2 (11:10→11:12)
--- NOTE | 2017-06-14 11:25 | NUR ---
RN NOTES PATIENT DISCHARGED IN STABLE CONDITION WITH BREATHING NORMAL, EVEN AND UNLABORED. NO SOB NOTED. NO ACUTE DISTRESS NOTED. DISCHARGE INSTRUCTION GIVEN WITH FEEDBACK. FATHER AT BEDSIDE. UNDERSTOOD WELL. KEPT CLEAN, DRY AND COMFORTABLE. ALL NEEDS ATTENDED. PATIENT LEFT WITH FATHER IN STABLE CONDITION.
== END 2017-06-14 11:24 | disposition short-term general hospital (02) | DRG 720 ==
LOC: ER 22:05 → UNDOADMIN 06-10 00:52 → ICU 06-10 00:52 → TELE-TD 06-13 23:23 → MEDSG1 06-14 08:33
PROVIDERS: ADMIT Internal Medicine; ATTEND Internal Medicine
PROC: 0BH17EZ Insertion of Endotracheal Airway into Trachea, Via Natural or Artificial Opening (ICD-10-PCS; principal; 2017-06-10)
PROC: 5A1945Z Respiratory Ventilation, 24-96 Consecutive Hours (ICD-10-PCS; principal; 2017-06-10)
DX: A41.9 Sepsis, unspecified organism (principal); J96.00 Acute respiratory failure, unspecified whether with hypoxia or hypercapnia; J69.0 Pneumonitis due to inhalation of food and vomit; G40.901 Epilepsy, unspecified, not intractable, with status epilepticus; R73.9 Hyperglycemia, unspecified; E87.6 Hypokalemia; D72.829 Elevated white blood cell count, unspecified; Z91.14 Patient's other noncompliance with medication regimen; H54.7 Unspecified visual loss
CPT/HCPCS: 31720; 36415; 36600; 70450-TC; 71010-TC; 80048-TC; 80053-TC; 80076-TC; 80202-TC; 80305; 82803-TC; 82962-TC; 83735-TC; 84100-TC; 84478-TC; 85025-TC; 85730-TC; 87040-TC; 87070-TC; 87081-TC; 87086-TC; 92526; 92611-TC; 94003-TC; 94799-TC; 99082-TC; A4606; C9113; G0480; J1165; J1170; J1650; J1953; J2060; J2405; J2543; J3010; J3370; J3480; J3490; J7030; J7040; J7042; J7050; J7060; Z7610